=== PATIENT | male | born 1965 | race Caucasian/White ===

== ENCOUNTER 2019-01-29 13:39 | Emergency (ER) | payer OTHER ==
[~2019-01-29] VITALS: Ht 185.4 cm; Wt 83.9 kg
[2019-01-29] MEDS ORDERED: ABILIFY10 MG PO (13:45)
[2019-01-29] MEDS ORDERED: VISTARIL50 MG PO (13:46)
--- NOTE | 2019-01-30 14:16 | EKG ---
[facility] [address] [place] [address] Signed Normal sinus rhythm Normal ECG No previous ECGs available Confirmed by JOVANY BLAKE MD ([id number]) on 01/30/2019 2:16:07 PM Electronically Signed By: JOVANY BLAKE MD 01/30/19 1416 PATIENT NAME: AROLDO RODRIGUEZ Electrocardiogram DATE OF : 61 PHYSICIAN: JOVANY BLAKE MD REPORT #: [id number] REPORT IS CONFIDENTIAL AND NOT TO BE RELEASED WITHOUT AUTHORIZATION
== END 2019-01-29 16:02 | disposition home or self-care (01) ==
LOC: ED 13:39
DX: E86.0 Dehydration (principal); Z87.891 Personal history of nicotine dependence
CPT/HCPCS: 80053; 84484; 85025; 93005; 93010; 99284-25; J7120